=== PATIENT | male | born 1985 | race Two or more races ===

== ENCOUNTER 2019-11-01 00:46 | Emergency (ER) | payer BC, MEDICAID ==
[~2019-11-01] VITALS: Ht 170.2 cm; Wt 68.0 kg
[2019-11-01 01:18] LABS: Eosinophils # (auto) 0.1 uL; Hemoglobin 16.5 g/dL (13.5-17.5); Mean Corpuscular Volume 98.4 fL (80.0-100.0); Red Cell Distribution Width 12.5 % (11.8-14.3); White Blood Cell 8.7 10^3/uL (4.4-10.8)
[2019-11-01 01:20] LABS: Basophils # (auto) 0.1 uL; Eosinophils % (auto) 0.9 % (0.0-7.0); Hematocrit 46.5 % (41.0-53.0); Lymphocytes # (auto) 2.3 uL; Lymphocytes % (auto) 26.6 % (10.0-50.0); Mean Corpuscular Hemoglobin 34.9 pg (28.0-32.0); Mean Corpuscular Hgb Conc. 35.4 g/dL (32.0-36.0); Monocytes # (auto) 0.7 uL; Monocytes % (auto) 8.5 % (0.0-12.0); Neutrophils # (auto) 5.5 uL; Platelet Count (auto) 304 10^3/uL (140-450); Red Blood Cells 4.73 10^6/uL (4.5-5.90)
[2019-11-01 01:37] LABS: Albumin 4.2 g/dL (3.4-5.0); BUN/Creatinine Ratio 18.9; Calcium 8.5 mg/dL (8.5-10.1); Magnesium 2.5 mg/dL (1.6-2.6); Potassium 3.4 mmol/L (3.5-5.1); Salicylate < 1.7 mg/dL (2.8-20.0)
[2019-11-01 01:40] LABS: Bilirubin, Total 0.7 mg/dL (0.2-1.0); Total Protein 7.9 g/dL (6.4-8.2)
[2019-11-01 01:43] LABS: Acetaminophen < 2.0 ug/mL (10-30)
[2019-11-01 04:11] LABS: Amphetamine Screen, Urine POSITIVE (NEGATIVE); Barbiturate Scree,Urine NEGATIVE (NEGATIVE); Benzodiazephine Screen, Urine NEGATIVE (NEGATIVE); Cannabinoid Screen, Urine NEGATIVE (NEGATIVE); Cocaine Screen, Urine NEGATIVE (NEGATIVE); Opiate Scree,Urine NEGATIVE (NEGATIVE); Phencyclidine Screen, Urine NEGATIVE (NEGATIVE)
[2019-11-01 04:15] VITALS: BP 119/77
[2019-11-01 04:54] LABS: Urine Bacteria FEW /hpf (None Seen); Urine Blood Negative /uL (Negative); Urine Mucus FEW (None Seen); Urine Specific Gravity 1.011 (1.001-1.035); Urine Sperm PRESENT /hpf (None Seen); Urine WBC 7 /hpf (0 - 3)
[2019-11-01] MEDS ORDERED: HYDROcodone-ACET 5/325MG TAB PO ONE (06:00)
== END 2019-11-01 04:00 | disposition home or self-care (01) ==
LOC: EDBD 00:46 → EDSEX 00:46 → ER 00:48
DX: S06.0X0A Concussion without loss of consciousness, initial encounter (principal); S16.1XXA Strain of muscle, fascia and tendon at neck level, initial encounter; V43.52XA Car driver injured in collision with other type car in traffic accident, initial encounter; Y93.89 Activity, other specified; Y99.8 Other external cause status; Y92.410 Unspecified street and highway as the place of occurrence of the external cause
CPT/HCPCS: 36415; 70450; 71250; 72125; 80053; 80307; 80320; 80329; 81001; 83735; 85025

== ENCOUNTER 2020-09-11 12:05 | Emergency (ER) | payer BC, MEDICAID ==
[~2020-09-11] VITALS: Ht 175.3 cm; Wt 61.2 kg
[2020-09-11 12:20] VITALS: BP 128/62
[2020-09-11] MEDS ORDERED: ACETAMINOPHEN 325 MG TAB PO ONE (13:00)
[2020-09-11] MEDS ORDERED: HYDROcodone-ACET 10/325MG TAB PO ONE (14:30)
== END 2020-09-11 16:17 | disposition home or self-care (01) ==
LOC: ER 12:05
DX: M79.671 Pain in right foot (principal); R22.41 Localized swelling, mass and lump, right lower limb
CPT/HCPCS: 73630; 93971